=== PATIENT | female | born 1960 | race American Indian/Alaskan Native ===

== ENCOUNTER 2021-07-17 13:45 | Emergency (ER) | payer SELFPAY ==
[2021-07-17 14:39] LABS: Basophils % (Auto) 0.5 % (0.0-1.8); Eosinophils % (Auto) 0.7 % (0.0-4.3); Hematocrit 42.2 % (30.3-42.9); Hemoglobin 13.5 gm/dl (10.1-14.3); Lymphocytes # (Auto) 2.1 K/mm3 (1.2-5.4); Lymphocytes % (Auto) 51.7 % (13.4-35.0); Mean Corpuscular HGB Conc 32 % (30-34); Mean Corpuscular Volume 83 fl (79-97); Monocytes # (Auto) 0.3 K/mm3 (0.0-0.8); Monocytes % (Auto) 7.2 % (0.0-7.3); Platelet Count 238 K/mm3 (140-440); Red Blood Count 5.07 M/mm3 (3.65-5.03); Red Cell Distribution Width 16.2 % (13.2-15.2)
--- NOTE | 2021-07-17 15:06 | XRay Report ---
CHEST 2 VIEWS INDICATION / CLINICAL INFORMATION: Shortness of breath. COMPARISON: None available. FINDINGS: SUPPORT DEVICES: None. HEART / MEDIASTINUM: No significant abnormality. LUNGS / PLEURA: No significant pulmonary or pleural abnormality. No pneumothorax. ADDITIONAL FINDINGS: No significant additional findings. IMPRESSION: 1. No acute findings. Signer Name: Davion Talley MD Signed: 07/17/2021 3:01 PM Workstation Name: [id number]
[2021-07-17 15:09] LABS: Alanine Aminotransferase 25 units/L (7-56); Albumin 3.9 g/dL (3.9-5); BUN/Creatinine Ratio 14; Blood Urea Nitrogen 10 mg/dL (7-17); Calcium 9.3 mg/dL (8.4-10.2); Hemolysis Index 6
--- NOTE | 2021-07-17 15:11 | Emergency Department Report ---
ED Shortness of Breath HPI - General Chief Complaint: Dyspnea/Respdistress Stated Complaint: SOB Time Seen by Provider: 07/17/21 14:56 Source: patient Mode of arrival: Ambulatory Limitations: No Limitations - History of Present Illness Initial Comments: 60-year-old female presents to the emergency department complaining of shortness of breath, diarrhea, bloody noses, nausea, and coughing. The patient states that her symptoms started last . She started coughing and coughed up a little blood. She had a nosebleed later in the day and then developed diarrhea. She has been notably short of air, mostly at night. She has had 3 nosebleeds since . She denies any chest pain, palpitations, lower extremity swelling, dizziness, near-syncope or syncope. She is unaware of any recent fevers and denies chills. She did have her COVID-19 vaccination just over 3 weeks ago. She states that she quit smoking 2 days ago. She has not seen a doctor in about 2 years. MD Complaint: shortness of breath, cough Onset/Timin (Days) -: Sudden Severity: moderate Pain Scale: 5 Consistency: constant Improves With: nothing Worsens With: exertion Associated Symptoms: nausea/vomiting, other (Diarrhea, nosebleeds) Treatments Prior to Arrival: none - Related Data Home Oxygen Therapy: No Previous Rx's Medication Instructions Recorded Last Taken Type Albuterol Mdi (or & Nicu Only) 2 puff IH QID PRN #8.5 gram 07/17/21 Unknown Rx [ProAir HFA Inhaler] Allergies Allergy/AdvReac Type Severity Reaction Status Date / Time Penicillins Allergy Anaphylaxis Verified 07/17/21 18:00 ED Review of Systems ROS: Stated complaint: SOB Other details as noted in HPI Comment: All other systems reviewed and negative Constitutional: chills, malaise, weakness ENT: epistaxis Respiratory: cough, shortness of breath Cardiovascular: paroxysmal nocturnal dyspnea. denies: chest pain, palpitations, syncope Gastrointestinal: nausea, diarrhea. denies: hematemesis, melena ED Past Medical Hx - Past Medical History Hx of Cancer: Yes (Breast) - Medications Home Medications: Home Medications Medication Instructions Recorded Confirmed Last Taken Type Albuterol Mdi (or & Nicu Only) 2 puff IH QID PRN #8.5 gram 07/17/21 Unknown Rx [ProAir HFA Inhaler] ED Physical Exam - General Limitations: No Limitations General appearance: alert, in no apparent distress - Head Head exam: Present: atraumatic, normocephalic - Eye Eye exam: Present: normal appearance - ENT ENT exam: Present: mucous membranes moist - Neck Neck exam: Present: normal inspection - Respiratory Respiratory exam: Present: normal lung sounds bilaterally. Absent: respiratory distress - Cardiovascular Cardiovascular Exam: Present: regular rate, normal rhythm. Absent: systolic murmur, diastolic murmur, rubs, gallop - GI/Abdominal GI/Abdominal exam: Present: soft, normal bowel sounds - Extremities Exam Extremities exam: Present: normal inspection. Absent: pedal edema - Back Exam Back exam: Present: normal inspection - Neurological Exam Neurological exam: Present: alert, oriented X3 - Psychiatric Psychiatric exam: Present: normal affect, normal mood - Skin Skin exam: Present: warm, dry, intact, normal color. Absent: rash ED Course Vital Signs 07/17/21 13:49 Temperature 98 F Pulse Rate 89 Respiratory 16 Rate Blood Pressure 139/79 [Right] O2 Sat by Pulse 16 L Oximetry ED Medical Decision Making - Lab Data Result diagrams: 07/17/21 14:20 07/17/21 14:20 - EKG Data EKG shows normal: sinus rhythm Rate: normal - EKG Data When compared to previous EKG there are: no significant change - Radiology Data Radiology results: report reviewed, image reviewed The chest x-ray did not reveal anything acute. CT angiogram shows no evidence of PE, infiltrate, or congestive changes. She does have some evidence of COPD. - Medical Decision Making I did discuss the case with the hospitalist. He agreed that the patient needed an echocardiogram and further work-up, but felt that she was a good candidate for outpatient follow-up. I discussed all of the findings with the patient and her daughter. She does have an appointment with a new primary care provider on [address] Martínez did offer to see her in his office and I have given her further resources. I will send her home with an albuterol HFA and have encouraged her to continue with tobacco abstinence. Strong return precautions were given for chest pain, palpitations, or worsening symptoms. Critical care attestation.: If time is entered above; I have spent that time in minutes in the direct care of this critically ill patient, excluding procedure time. ED Disposition Clinical Impression: Elevated brain natriuretic peptide (BNP) level Dyspnea Qualifiers: Dyspnea type: shortness of breath Qualified Code(s): R06.02 - Shortness of breath COPD (chronic obstructive pulmonary disease) Qualifiers: COPD type: unspecified COPD Qualified Code(s): J44.9 - Chronic obstructive pulmonary disease, unspecified Disposition: HOME / SELF CARE / HOMELESS Is pt being admited?: No Does the pt Need Aspirin: No Condition: Stable Instructions: Cough, Adult, [id number], Shortness of Breath, Adult, Heart Failure, Diagnosis, [id number], Chronic Obstructive Pulmonary Disease (ED) Prescriptions: Albuterol Mdi (or & Nicu Only) [ProAir HFA Inhaler] 2 puff IH QID PRN #8.5 gram PRN Reason: Shortness Of Breath Referrals: PRIMARY CARE, [Primary Care Provider] - 3-5 Days DEISI MARTÍNEZ MD [Staff Physician] - 3-5 Days
--- NOTE | 2021-07-17 20:18 | Cat Scan Report ---
CTA CHEST WITH CONTRAST INDICATION / CLINICAL INFORMATION: sob, hemoptysis; hx breast Ca. TECHNIQUE: Axial CT images were obtained through the chest after injection of 100 mL Omnipaque 350 IV contrast. 3 plane MIP and/or 3D reconstructions were produced. All CT scans at this location are per formed using CT dose reduction for ALARA by means of automated exposure control. COMPARISON: None available. FINDINGS: PULMONARY ARTERIES: No pulmonary emboli. THORACIC AORTA: No significant abnormality. HEART: No significant abnormality. 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 CORONARY ARTERY CALCIFICATION: None. MEDIASTINUM / ASAD: No significant abnormality. PLEURA: No pleural effusion. No pneumothorax. LUNGS: Upper lobe predominant centrilobular emphysema. Scattered tiny lung nodules. For example, ther e is a 3 mm nodule in the right lower lobe on series 4 image 255 and 3 mm nodule in the right upper l obe on series 4 image 122. ADDITIONAL FINDINGS: Left mastectomy. Prominent right axillary lymph nodes are nonspecific. UPPER ABDOMEN: No acute findings. SKELETAL STRUCTURES: No significant osseous abnormality. IMPRESSION: 1. No CT evidence for pulmonary embolism. 2. Upper lobe predominant emphysema. 3. Prominent right axillary lymph nodes are nonspecific. Recommend clinical correlation. 4. Multiple incidental pulmonary nodule(s) in the right upper lobe measuring 3 mm with solid characte ristics. Recommendation according to Fleischner Society 2017 Guidelines: Low Risk Patient: No routine follow-up; High Risk Patient: Optional CT at 12 months. Signer Name: Arturo Maddox MD Signed: 07/17/2021 8:14 PM Workstation Name: [id number]
[2021-07-17 21:00] VITALS: BP 145/93
--- NOTE | 2021-07-18 08:41 | Electrocardiograph Report ---
[facility] Test Date: 2021-07-17 Test Time: 15:04:16 Pat Name: MYRNA PATEL Department: Room: Gender: F In [employer]: DARBY : 1960 Requested By: NAVID DOOLEY Order Number: [id number] Reading MD: Nabeel Hussein Measurements Intervals Marshall Rate: 94 P: 73 VT: 181 QRS: 51 QRSD: 81 T: 84 QT: 415 QTc: 519 Interpretive Statements Sinus rhythm Left atrial enlargement Consider anterolateral infarct Prolonged QT interval No previous ECG available for comparison Electronically Signed On 07-18-2021 8:41:22 EST by Nabeel Hussein
== END 2021-07-17 20:55 | disposition home or self-care (01) ==
LOC: ED 13:45
DX: R79.89 Other specified abnormal findings of blood chemistry (principal); J44.9 Chronic obstructive pulmonary disease, unspecified; Z88.0 Allergy status to penicillin; Z85.3 Personal history of malignant neoplasm of breast
CPT/HCPCS: 36415; 71046; 71275; 80053; 83880; 84484; 85025; 93005; 99284; Q9967